=== PATIENT | female | born 1945 | race Caucasian/White ===

== ENCOUNTER → 2018-02-02 | Outpatient (CLI) | payer OTHER, SELFPAY ==
[~2018-02-02] MED LIST: ANTACID325 MG PO; ASPIRIN81 M2 PO; ATENOLOL 100MG100 M2 PO; BENTYL 10 MG CA10 MG PO; CATAPRES-TTS 20.2 M1; CIPRO250 M1 PO; CIPRO500 MG PO; CLONIDINE HCL0.2 M2 PO; CLONIDINE HCL0.3 M3; COLACE100 MG PO; CYCLOBENZAPRINE10 MG PO; CYMBALTA60 MG PO; DILTIAZEM 24HR240 MG; FLAGYL500 MG PO; GABAPENTIN 100100 MG PO; GLIPIZIDE ER2.5 MG PO; GLUMETZA1000; HYDRALAZINE 10M10 MG PO; HYDROCODON-ACE1 EAC7; IRON325 PO; KEFLEX500 MG PO; MECLIZINE 25 MG25 M1; MECLIZINE HCL25 M1 PO; MOTION RELIEF25 MG PO; NORCO 5-325 TA1 EACH PO; NORVASC5 MG PO; PAMELOR25 MG PO; PERCOCET 5-3251 EACH PO; PROTONIX40 M1 PO; PROTONIX40 M2; REGLAN 10 MG TA10 MG PO; SINEMET 10-1001 EAC1 PO; SINEMET CR 50/21 TAB PO; TRIPHROCAPS SOFT1 MG; TRIPHROCAPS SOFT1 MG PO; TUMS PO; VITAMIN D5000 UNIT PO; XANAX 0.25 MG0.25 MG PO; ZANTAC 150MG T150 M1; ZANTAC 150MG T150 MG PO; ZANTAC PO; ZOCOR40 MG PO; ZOFRAN ODT4 MG PO; ZOFRAN4 MG
[2018-02-02 12:09] LABS: ABSOLUTE LYMPHOCYTES 1.3 thou/uL (0.8-5.3); ABSOLUTE NEUTROPHILS 6.7 thou/uL (1.6-8.1); NUCLEATED RBCS 0 /100WBC; RDW-CV 13.4 % (10.5-14.5)
[2018-02-02 12:10] LABS: ABSOLUTE BASOPHILS 0.1 thou/uL (0.0-0.2); ABSOLUTE EOSINOPHILS 0.3 thou/uL (0.0-0.7); ABSOLUTE MONOCYTES 0.6 thou/uL (0.0-1.2); EOSINOPHILS 3.6 %; HEMATOCRIT 29.6 % (37.0-47.0); HEMOGLOBIN 9.8 gm/dL (12.0-15.0); LYMPHOCYTES 14.5 %; MCHC 33.1 g/dL (28.0-37.0); MCV 93.7 fL (80.0-100.0); MONOCYTES 7.1 %; PLATELET COUNT* 220 thou/uL (150-400); POLYS 73.8 %; RBC 3.15 mil/uL (4.20-5.00); WBC 9.1 thou/uL (4.0-11.0)
[2018-02-02 12:23] LABS: ALBUMIN 3.1 g/dL (3.4-5.0); CALCIUM 8.5 mg/dL (8.5-10.1); CREATININE 2.5 mg/dL (0.6-1.3); POTASSIUM 4.1 mmol/L (3.5-5.1); TOTAL BILIRUBIN 0.4 mg/dL (<0.1-1.0)
[2018-02-02 13:18] LABS: ESR (SEDRATE) 62 mm/hr (0-30)
== END ==
LOC: M.LAB 11:50
PROVIDERS: Psychiatry & Neurology Neuromuscular Medicine
DX: G20 Parkinson's disease (principal); R53.83 Other fatigue; R68.89 Other general symptoms and signs

== ENCOUNTER → 2018-05-13 | Outpatient (CLI) | payer OTHER | LOC: M.LAB 12:28 | DX: G20 Parkinson's disease (principal); R53.83 Other fatigue ==

== ENCOUNTER 2018-07-17 10:56 | Inpatient (IN) | payer OTHER ==
[~2018-07-17] VITALS: Ht 157.5 cm; Wt 75.7 kg
[~2018-07-17 10:56] MED LIST changes: +SINEMET CR 25-1 EACH PO; -SINEMET CR 50/21 TAB PO
[2018-07-17 11:05] VITALS: BP 185/63
[2018-07-17] MEDS ORDERED: TRIAMCINOLONE A80 G2 TOP (11:15)
[2018-07-17] MEDS ORDERED: LIPITOR 20 MG T20 M1 PO (11:15)
[2018-07-17] MEDS ORDERED: TOPROL XL25 MG PO (11:15)
[2018-07-17] MEDS ORDERED: CUTIVATE120 ML TOP (11:16)
[2018-07-17] MEDS ORDERED: AMLACTIN1 EACH TOP (11:17)
[2018-07-17 11:57] LABS: BE -0.7 mmol/L (-2 to +3); PCO2 41.2 mmHg (35.0-45.0); PO2 61.2 mmHg (75.0-100.0); pH 7.388 (7.340-7.450)
[2018-07-17 12:24] LABS: HEMATOCRIT 28.4 % (37.0-47.0); HEMOGLOBIN 9.3 gm/dL (12.0-15.0); MCH 31.3 pg (26.0-34.0); MCHC 32.9 g/dL (28.0-37.0); MPV 9.5 fl. (7.2-11.1); NUCLEATED RBCS 0 /100WBC; PLATELET COUNT* 231 thou/uL (150-400); RBC 2.99 mil/uL (4.20-5.00); RDW-CV 12.8 % (10.5-14.5); WBC 8.8 thou/uL (4.0-11.0)
[2018-07-17 12:28] LABS: URINE BILIRUBIN NEGATIVE (Negative); URINE BLOOD NEGATIVE (Negative); URINE CLARITY CLEAR; URINE COLOR STRAW; URINE GLUCOSE-RANDOM TRACE (Negative); URINE KETONES NEGATIVE (Negative); URINE LEUKOCYTES-REFLEX NEGATIVE (Negative); URINE NITRITE-REFLEX NEGATIVE (Negative); URINE PROTEIN 2+ (Negative); URINE SPECIFIC GRAVITY 1.015 (1.005-1.030); URINE UROBILINOGEN 0.2 E.U./dl (0.2-1.0)
[2018-07-17 12:40] LABS: BACTERIA-REFLEX 1-9 Few /HPF (None Seen); SQUAMOUS 4-10 Moderate /LPF (0-3); URINE RBC 0-2 Rare /HPF (0-2); URINE WBC-REFLEX 0-5 Rare /HPF (0-5)
[2018-07-17 12:41] LABS: CASTS None Seen /LPF (None Seen); CRYSTALS None Seen /LPF (None Seen); MUCUS 0-3 Light strn/LPF (None Seen)
[2018-07-17 12:42] LABS: ALBUMIN 3.1 g/dL (3.4-5.0); CALCIUM 8.5 mg/dL (8.5-10.1); CREATININE 2.5 mg/dL (0.6-1.3); MAGNESIUM 2.6 mg/dL (1.8-2.4); POTASSIUM 4.1 mmol/L (3.5-5.1); TOTAL BILIRUBIN 0.4 mg/dL (<0.1-1.0); TOTAL PROTEIN 7.3 g/dL (6.4-8.2)
[2018-07-17 13:29] LABS: ABSOLUTE EOSINOPHILS 0.2 thou/uL (0.0-0.7); ABSOLUTE LYMPHOCYTES 0.4 thou/uL (0.8-5.3); ABSOLUTE MONOCYTES 0.6 thou/uL (0.0-1.2); ABSOLUTE NEUTROPHILS 7.6 thou/uL (1.6-8.1); PLATELET ESTIMATE ADEQUATE
[2018-07-17 13:30] LABS: HYPOCHROMASIA 2+
[2018-07-17 14:45] VITALS: BP 156/49
[2018-07-17 20:00] VITALS: BP 120/60
[2018-07-17 23:43] VITALS: BP 164/51
[2018-07-18 03:56] VITALS: BP 171/62
[2018-07-18 05:03] LABS: HEMATOCRIT 27.1 % (37.0-47.0); MCH 31.5 pg (26.0-34.0); MCHC 33.3 g/dL (28.0-37.0); MCV 94.6 fL (80.0-100.0); MPV 9.5 fl. (7.2-11.1); RBC 2.87 mil/uL (4.20-5.00); RDW-CV 13.2 % (10.5-14.5); WBC 8.4 thou/uL (4.0-11.0)
[2018-07-18 05:48] LABS: ALBUMIN 2.9 g/dL (3.4-5.0); CALCIUM 8.3 mg/dL (8.5-10.1); CREATININE 2.5 mg/dL (0.6-1.3); MAGNESIUM 2.5 mg/dL (1.8-2.4); POTASSIUM 4.2 mmol/L (3.5-5.1); TOTAL BILIRUBIN 0.4 mg/dL (<0.1-1.0)
[2018-07-18 08:30] VITALS: BP 165/61
[2018-07-18 12:00] VITALS: BP 200/83
--- NOTE | 2018-07-18 13:47 | EKG ---
[place] [address] ELECTROCARDIOGRAM REPORT Name: KATECARRIESeema WEINSTEIN Room: [address] ADM IN M.R.#: [id number] Admission: 07/17/18 Attend Phys: Colton Coronado, Discharge: Date of : 47 Report #: [id number] THIS REPORT FOR: //name// [facility] ED Test Date: 2018-07-17 Test Time: 11:29:05 Pat Name: CARRIE LOVE Department: Room: [facility] Gender: F Rectifying Attendant: [address] : 1945 Requested By: Janet Sifuentes Order Number: [id number] MD: Franklin Gao Measurements Intervals [place] Rate: 85 P: 60 NC: 203 QRS: 77 QRSD: 106 T: 53 QT: 399 QTc: 475 Interpretive Statements Sinus rhythm Probable left atrial enlargement Compared to ECG 05/23/2016 09:03:38 No significant changes Electronically Signed On 07-18-2018 13:47:38 CDT by Franklin Gao [email or web address] <ELECTRONICALLY SIGNED> By: Franklin Gao MD, [facility] 07/18/18 1347 1129 [id number] Franklin Gao MD, [facility] /EPI
[2018-07-18 16:00] VITALS: BP 183/76
[2018-07-18 18:45] VITALS: BP 170/64
[2018-07-18 20:00] VITALS: BP 151/51; BP 160/52
[2018-07-19 04:00] VITALS: BP 160/61
[2018-07-19 04:52] LABS: ALBUMIN 2.8 g/dL (3.4-5.0); CALCIUM 8.3 mg/dL (8.5-10.1); CREATININE 2.4 mg/dL (0.6-1.3); PHOSPHORUS* 5.4 mg/dL (2.5-4.9); POTASSIUM 4.7 mmol/L (3.5-5.1)
[2018-07-19 11:57] VITALS: BP 162/64
[2018-07-20 05:29] LABS: ABSOLUTE BASOPHILS 0.1 thou/uL (0.0-0.2); ABSOLUTE EOSINOPHILS 0.2 thou/uL (0.0-0.7); ABSOLUTE LYMPHOCYTES 1.1 thou/uL (0.8-5.3); ABSOLUTE MONOCYTES 0.6 thou/uL (0.0-1.2); ABSOLUTE NEUTROPHILS 5.1 thou/uL (1.6-8.1); BASOPHILS 1.2 %; HEMATOCRIT 25.7 % (37.0-47.0); HEMOGLOBIN 8.3 gm/dL (12.0-15.0); LYMPHOCYTES 15.8 %; MCH 30.6 pg (26.0-34.0); MCHC 32.1 g/dL (28.0-37.0); MCV 95.2 fL (80.0-100.0); MONOCYTES 8.1 %; MPV 9.6 fl. (7.2-11.1); NUCLEATED RBCS 0 /100WBC; PLATELET COUNT* 196 thou/uL (150-400); POLYS 71.9 %; RDW-CV 13.3 % (10.5-14.5); WBC 7.1 thou/uL (4.0-11.0)
[2018-07-20 05:39] LABS: CALCIUM 8.9 mg/dL (8.5-10.1); CREATININE 2.6 mg/dL (0.6-1.3); POTASSIUM 4.2 mmol/L (3.5-5.1)
[2018-07-20 07:30] VITALS: BP 164/54
--- NOTE | 2018-07-20 14:46 | 2DMMODE ---
[place] [address] 2 D/M-MODE ECHOCARDIOGRAM Name: ACRRIE LOVE Room: [address] IN [facility]#: [id number] Admission: 07/17/18 Attend Phys: Colton Hu Discharge: Date of : 47 Date of Service: 07/20/18 1446 Report #: [id number] THIS REPORT FOR: //name// APPROVED REPORT Study performed: 07/20/2018 13:38:45 EXAM: Comprehensive 2D, Doppler, and color-flow Echocardiogram Patient Location: In-Patient Room #: [facility] Status: routine BSA: 1.77 HR: 63 bpm BP: 180/68 mmHg Rhythm: NSR Other Information Study Quality: Good Indications Dyspnea 2D Dimensions IVSd: 11.70 (7-11mm) LVOT Diam: 20.24 (18-24mm) LVDd: 45.93 mm PWd: 11.70 (7-11mm) Ascending Ao: 31.32 (22-36mm) LVDs: 36.38 (25-40mm) Aortic Root: 26.58 mm Volumes Left Atrial Volume (Systole) LA ESV Index: 59.40 mL/m2 Aortic Valve AoV Peak Tate.: 1.51 m/s AO Peak Gr.: 9.11 mmHg LVOT Max P.97 mmHg AO Mean Gr.: 5.07 mmHg LVOT Mean P.70 mmHg LVOT Max V: 1.11 m/s AO V2 VTI: 32.78 cm LVOT Mean V: 0.77 m/s WILLA (VTI): 2.58 cm2 LVOT V1 VTI: 26.31 cm Mitral Valve E/A Ratio: 1.33 MV Decel. Time: 136.75 ms MV E Max Tate.: 1.02 m/[place] [address] 2 D/M-MODE ECHOCARDIOGRAM Name: KATECARRIE Room: [address] IN ..#: [id number] Admission: 07/17/18 Attend Phys: Colton Hu Discharge: Date of : 47 Date of Service: 07/20/18 1446 Report #: [id number] MV PHT: 39.66 ms MVA (PHT): 5.55 cm2 TDI E/Lateral E': 14.57 E/Medial E': 17.00 Medial E' Tate.: 0.06 m/s Lateral E' Tate.: 0.07 m/s Pulmonary Valve PV Peak Tate.: 0.95 m/s PV Peak Gr.: 3.64 mmHg Tricuspid Valve RAP Estimate: 5.00 mmHg TR Peak Gr.: 35.96 mmHg RVSP: 41.00 mmHg PA Pressure: 41.00 mmHg Left Ventricle The left ventricle is normal size. There is mild global hypokinesis. Mild concentric left ventricular hypertrophy. Left ventricular systolic function is mildly decreased. LVEF is 45-50%. Grade III - reversible restrictive diastolic dysfunction. Right Ventricle Right ventricle is mildly dilated. The right ventricular systolic function is normal. Atria Left atrium is severely dilated. Right atrium is moderately dilated. Aortic Valve Mild aortic valve sclerosis. No aortic regurgitation is present. There is no aortic valvular stenosis. Mitral Valve There is mitral annular calcification. Trace mitral regurgitation. No evidence of mitral valve stenosis. Tricuspid Valve The tricuspid valve is normal in structure. Mild tricuspid regurgitation. Moderate pulmonary hypertension. Pulmonic Valve The pulmonary valve is normal in structure. Trace [place] [address] 2 D/M-MODE ECHOCARDIOGRAM Name: CARRIE LOVE Room: [address]#: [id number] Admission: 07/17/18 Attend Phys: Colton Hu Discharge: Date of : 47 Date of Service: 07/20/18 1446 Report #: [id number] Great Vessels The aortic root is normal in size. IVC is normal in size and collapses >50% with inspiration. Pericardium There is no pericardial effusion. <Conclusion> The left ventricle is normal size. Mild concentric left ventricular hypertrophy. Left ventricular systolic function is mildly decreased. LVEF is 45-50%. Grade III - reversible restrictive diastolic dysfunction. There is mild global hypokinesis. Right ventricle is mildly dilated. Left atrium is severely dilated. Right atrium is moderately dilated. Mild aortic valve sclerosis. There is mitral annular calcification. Trace mitral regurgitation. Mild tricuspid regurgitation. Moderate pulmonary hypertension. Trace pulmonic regurgitation. <ELECTRONICALLY SIGNED> By: Raz White MD, FACC 07/20/18 1446 1446 1446 Raz White MD, FACC /INF
[2018-07-20 16:50] VITALS: BP 174/55
[2018-07-20 20:30] VITALS: BP 163/72
[2018-07-21 04:47] LABS: ABSOLUTE BASOPHILS 0.1 thou/uL (0.0-0.2); ABSOLUTE EOSINOPHILS 0.1 thou/uL (0.0-0.7); ABSOLUTE LYMPHOCYTES 0.9 thou/uL (0.8-5.3); ABSOLUTE MONOCYTES 0.7 thou/uL (0.0-1.2); ABSOLUTE NEUTROPHILS 6.6 thou/uL (1.6-8.1); HEMATOCRIT 24.9 % (37.0-47.0); HEMOGLOBIN 8.2 gm/dL (12.0-15.0); LYMPHOCYTES 10.7 %; MCH 30.9 pg (26.0-34.0); MCV 93.5 fL (80.0-100.0); MONOCYTES 8.1 %; MPV 9.7 fl. (7.2-11.1); NUCLEATED RBCS 0 /100WBC; PLATELET COUNT* 208 thou/uL (150-400); POLYS 79.2 %; RBC 2.66 mil/uL (4.20-5.00); RDW-CV 12.7 % (10.5-14.5); WBC 8.3 thou/uL (4.0-11.0)
[2018-07-21 05:32] LABS: CALCIUM 9.1 mg/dL (8.5-10.1); CREATININE 2.7 mg/dL (0.6-1.3); MAGNESIUM 2.1 mg/dL (1.8-2.4); PHOSPHORUS* 4.8 mg/dL (2.5-4.9); POTASSIUM 4.1 mmol/L (3.5-5.1)
[2018-07-21 08:00] VITALS: BP 154/77
[2018-07-21 16:00] VITALS: BP 166/65
[2018-07-21 20:46] VITALS: BP 170/73
[2018-07-22 08:00] VITALS: BP 170/67
--- NOTE | 2018-07-22 10:11 | CON ---
[address] [address] CONSULTATION Name: CARRIE LOVE Room: [address] IN .R.#: [id number] Admission: 07/17/18 Attend Phys: Colton Coronado, Discharge: Date of : 47 Report #: [id number] THIS REPORT FOR: //name// CC: Magdalena Coronado CONSULT REQUESTED BY: Dr. Coronado. REASON FOR CONSULTATION: Chronic kidney disease. HISTORY OF PRESENT ILLNESS: A 72-year-old female with a history of chronic kidney disease followed by Dr. Katz as an outpatient, admitted with generalized weakness, poorly controlled blood pressures and some hypoxia. She is being evaluated for the hypoxia. She did have a chest x-ray, which did not reveal any pulmonary edema or pneumonia. There was a nodular region of the right hilum, which is being followed by Internal Medicine. She denies any regular significant NSAID use. Denies any nausea, vomiting or diarrhea. She appears to be comfortable at present time. REVIEW OF SYSTEMS: Constitutional, psych, heme, eyes, ENT, respiratory, cardiac, GI, , endocrine, all negative except as documented above. PAST MEDICAL HISTORY: Chronic kidney disease stage 4, history of hypertension, diabetes, appendectomy, hysterectomy, Parkinson's. CURRENT MEDICATIONS: Reviewed. FAMILY HISTORY: Not pertinent in this 72-year-old female. SOCIAL HISTORY: No alcohol or drugs. PHYSICAL EXAMINATION: VITAL SIGNS: Blood pressure 165/61, pulse 85, respirations 16, temperature 36.5. GENERAL: No acute distress. EYES: Open. EARS: Externally normal. CARDIOVASCULAR: Regular rate. LUNGS: No crackles. ABDOMEN: Soft. MUSCULOSKELETAL: Nontender. PSYCHIATRIC: Awake, alert. LABORATORY DATA: White cell count 8.4, hemoglobin 9, platelets 224. Sodium 144, potassium 4.2, chloride 109, bicarbonate 25, BUN 44, creatinine 2.5, glucose 142, calcium 8.3, magnesium 2.5, albumin 2.9[place] [address] CONSULTATION Name: CARRIE LOVE CORINNA Room: [address] IN ..#: [id number] Admission: 07/17/18 Attend Phys: Colton Coronado, Discharge: Date of : 47 Report #: [id number] ASSESSMENT: 1. Chronic kidney disease, stage 4, followed by Dr. Katz as an outpatient. Creatinine 2.5, baseline may be around 2.5 as it was 2.5 in 01/2018. UA noted. She was on hemodialysis in the past, but recovered renal function. 2. Hypertension. 3. Parkinson's. 4. Diabetes. 5. Admitted with hypoxia. PLAN: 1. Discontinue normal saline. She is taking in orals. Blood pressure is elevated. She is on clonidine 0.3 mg 3 times a day at home. We will go ahead and resume that. 2. Check lab in a.m. 3. We will obtain office records to review baseline creatinine. Thank you for requesting my opinion in the care and management of this patient. <ELECTRONICALLY SIGNED> By: Anayeli Arrington MD 07/22/18 1011 1335 [id number] Arrington MD /nt
[2018-07-22 13:46] VITALS: BP 170/67
[2018-07-22] MEDS ORDERED: SENNA-S TABLET1 EACH PO (14:51)
[2018-07-22] MEDS ORDERED: DEMADEX20 MG PO (14:52)
[2018-07-22] MEDS ORDERED: CEFUROXIME500 MG PO (14:56)
[2018-07-22] MEDS ORDERED: AZITHROMYCIN500 MG PO (14:57)
[2018-07-22 15:28] VITALS: BP 176/64
== END 2018-07-22 15:34 | disposition home health service (06) | DRG 177 ==
LOC: M.ERS 10:56 → M.2W 12:58 → M.TBA-ER 12:58 → M.ORTHSURG 12:58 → M.2W 15:06 → M.ORTHSURG 07-19 16:08
PROVIDERS: Family Medicine; Internal Medicine Nephrology; Personal Emergency Response Attendant; ADMIT Family Medicine
DX: J15.6 Pneumonia due to other Gram-negative bacteria (principal); J96.01 Acute respiratory failure with hypoxia; N17.9 Acute kidney failure, unspecified; N18.4 Chronic kidney disease, stage 4 (severe); K59.09 Other constipation; E83.39 Other disorders of phosphorus metabolism; E86.0 Dehydration; I13.10 Hypertensive heart and chronic kidney disease without heart failure, with stage 1 through stage 4 chronic kidney disease, or unspecified chronic kidney disease; K58.9 Irritable bowel syndrome, unspecified; G20 Parkinson's disease; E11.22 Type 2 diabetes mellitus with diabetic chronic kidney disease; K21.9 Gastro-esophageal reflux disease without esophagitis; Z90.49 Acquired absence of other specified parts of digestive tract; Z90.710 Acquired absence of both cervix and uterus; Z99.2 Dependence on renal dialysis; Z79.82 Long term (current) use of aspirin; Z88.5 Allergy status to narcotic agent; Z82.49 Family history of ischemic heart disease and other diseases of the circulatory system

== ENCOUNTER 2018-12-20 17:43 | Inpatient (IN) | payer OTHER ==
[~2018-12-20] VITALS: Ht 160 cm; Wt 68.5 kg
--- NOTE | ~2018-12-20 | CON ---
[facility] [address] [place] [address] CONSULTATION Name: CARRIE LOVE Room: [address] IN ..#: [id number] Admission: 12/20/18 Attend Phys: Valerie Shrestha Discharge: Date of : 47 Report #: [id number] THIS REPORT FOR: //name// CC: Magdalena Deras DATE OF SERVICE: 12/21/2018 REQUESTING PHYSICIAN: Allan Cadet MD REASON FOR CONSULTATION: Acute kidney injury. HISTORY OF PRESENT ILLNESS: The patient is a very pleasant 73-year-old female very well known to me as I follow her for her chronic kidney disease stage 4. In the past, she required dialysis for some time then recovered kidney function, but now looks like she may be getting worse again. Baseline creatinine around 2.7-2.5. She had creatinine as low as 2.0 on 07/28/2018. She has been seeing vascular surgeon and she has AV fistula and had recent surgery on left lower arm AV fistula. Her creatinine on admission was 3.3, today is down to 2.9 with GFR of 16. She presented with chief complaint of the headache and her blood pressure was very elevated, it was 206/80. Now blood pressure is 175/72. PAST MEDICAL HISTORY: Significant for: 1. Chronic kidney disease, stage 4. 2. Hypertension. She is on 4 medications at home. 3. History of anemia, renal disease. 4. History of recent urinary tract infection. FAMILY HISTORY: Noncontributory. SOCIAL HISTORY: There is a very supportive family. No tobacco, no alcohol abuse. MEDICATIONS: Reviewed. Here in the hospital, she is on metoprolol 25 mg a day, hydralazine 20 mg 3 times a day, Norvasc 5 mg a day. She is also on Rocaltrol and clonidine 0.3 mg 3 times a day. PHYSICAL EXAMINATION: GENERAL: Awake, alert, and oriented. VITAL SIGNS: Blood pressure 175/80, heart rate is 60, afebrile. HEENT: Pupils are round. NECK: Supple. LUNGS: Decreased air movements at the bases. CARDIOVASCULAR: Regular rate. ABDOMEN: Soft. LOWER EXTREMITIES: [place] [address] CONSULTATION Name: CARRIE LOVE Valerie Room: [address]#: [id number] Admission: 12/20/18 Attend Phys: Valerie Shrestha Discharge: Date of : 47 Report #: [id number] LABORATORY DATA: Hemoglobin 9.8, serum sodium 136, potassium 3.6, chloride 99, carbon dioxide 27, BUN 57, creatinine 2.9, and calcium 8.3. Urinalysis unremarkable. ASSESSMENT: 1. Hypertensive urgency. 2. Acute kidney injury. 3. Chronic kidney disease, stage 4. 4. History of Parkinsonism. 5. History of anemia. PLAN: 1. Chest x-ray revealed that she has possible mild vascular prominence of the lungs. Now, she is able to keep food and drink down, so I would like to stop her IV fluids. 2. Follow her labs. 3. Make sure her blood pressure is controlled. 4. Vascular surgeon to see. 5. No immediate need for dialysis. By: 1103 [id number] Katz MD /PMT
[~2018-12-20 17:43] MED LIST changes: +AMLACTIN1 EACH TOP; +AZITHROMYCIN500 MG PO; +CEFUROXIME500 MG PO; -CLONIDINE HCL0.3 M3; +CLONIDINE HCL0.3 M3 PO; +CUTIVATE120 ML TOP; +DEMADEX20 MG PO; +LIPITOR 20 MG T20 M1 PO; +MIRALAX17 GM PO; +SENNA-S TABLET1 EACH PO; +TOPROL XL25 MG PO; +TRIAMCINOLONE A80 G2 TOP
[2018-12-20 17:57] VITALS: BP 185/64
[2018-12-20] MEDS ORDERED: NORTRIPTYLINE H50 M3 PO (18:10)
[2018-12-20] MEDS ORDERED: OXYCODONE HCL 55 MG PO (18:11)
[2018-12-20] MEDS ORDERED: CIPRO250 M1 PO (18:12)
[2018-12-20] MEDS ORDERED: CALCITRIOL0.25 MCG PO (18:12)
[2018-12-20 19:08] LABS: ABSOLUTE BASOPHILS 0.1 thou/uL (0.0-0.2); ABSOLUTE EOSINOPHILS 0.2 thou/uL (0.0-0.7); ABSOLUTE LYMPHOCYTES 1.3 thou/uL (0.8-5.3); ABSOLUTE MONOCYTES 0.6 thou/uL (0.0-1.2); ABSOLUTE NEUTROPHILS 6.3 thou/uL (1.6-8.1); BASOPHILS 1.2 %; EOSINOPHILS 2.1 %; HEMATOCRIT 29.1 % (37.0-47.0); HEMOGLOBIN 9.8 gm/dL (12.0-15.0); LYMPHOCYTES 15.4 %; MCH 31.7 pg (26.0-34.0); MCHC 33.7 g/dL (28.0-37.0); MCV 94.1 fL (80.0-100.0); MONOCYTES 7.3 %; MPV 9.2 fl. (7.2-11.1); NUCLEATED RBCS 0 /100WBC; PLATELET COUNT* 231 thou/uL (150-400); RBC 3.09 mil/uL (4.20-5.00); RDW-CV 13.7 % (10.5-14.5); WBC 8.5 thou/uL (4.0-11.0)
[2018-12-20 19:20] LABS: ANION GAP 10 mmol/L (7-16); BUN 62 mg/dL (7-18); CALCIUM 8.6 mg/dL (8.5-10.1); CHLORIDE 95 mmol/L (98-107); CO2 29 mmol/L (21-32); CREATININE 3.3 mg/dL (0.6-1.3); GLUCOSE 156 mg/dL (70-99); POTASSIUM 3.8 mmol/L (3.5-5.1); SODIUM 134 mmol/L (136-145)
[2018-12-20 19:29] LABS: ALBUMIN 3.4 g/dL (3.4-5.0); ALKALINE PHOSPHATASE 144 U/L (46-116); LIPASE 220 U/L (73-393); SGOT 10 U/L (15-37); SGPT 7 U/L (30-65); TOTAL BILIRUBIN 0.4 mg/dL (<0.1-1.0); TOTAL PROTEIN 7.6 g/dL (6.4-8.2); TROPONIN-I LEVEL <0.06 ng/mL (<0.06)
[2018-12-20 19:38] LABS: URINE BILIRUBIN NEGATIVE (Negative); URINE BLOOD NEGATIVE (Negative); URINE CLARITY CLEAR; URINE COLOR YELLOW; URINE GLUCOSE-RANDOM NEGATIVE (Negative); URINE KETONES NEGATIVE (Negative); URINE LEUKOCYTES-REFLEX NEGATIVE (Negative); URINE NITRITE-REFLEX NEGATIVE (Negative); URINE PROTEIN 1+ (Negative); URINE SPECIFIC GRAVITY <= 1.005 (1.005-1.030); URINE UROBILINOGEN 0.2 E.U./dl (0.2-1.0)
[2018-12-20 21:55] VITALS: BP 187/74
[2018-12-20 22:00] VITALS: BP 150/81
[2018-12-21] VITALS (7 sets, daily range): BP systolic 154–206; BP diastolic 55–85
[2018-12-21 10:45] LABS: CALCIUM 8.3 mg/dL (8.5-10.1); CREATININE 2.9 mg/dL (0.6-1.3); MAGNESIUM 2.4 mg/dL (1.8-2.4); POTASSIUM 3.6 mmol/L (3.5-5.1)
--- NOTE | 2018-12-21 15:01 | EKG ---
[place] [address] ELECTROCARDIOGRAM REPORT Name: CARRIE LOVE Room: [address] ADM IN .R.#: [id number] Admission: 12/20/18 Attend Phys: Valerie Shrestha Discharge: Date of : 47 Report #: [id number] THIS REPORT FOR: //name// [facility] ED Test Date: 2018-12-20 Test Time: 18:23:03 Pat Name: CARRIE LOVE Department: Room: [facility] Gender: F Pmp Project Manager: : 1945 Requested By: Dayana Alonzo Order Number: [id number] MD: Raz White Measurements Intervals [place] Rate: 67 P: 37 MA: 204 QRS: 22 QRSD: 109 T: 75 QT: 419 QTc: 443 Interpretive Statements Sinus rhythm Abnormal R-wave progression, early transition Compared to ECG 07/26/2018 14:42:13 Atrial abnormality no longer present Prolonged QT interval no longer present Electronically Signed On 12-21-2018 15:01:08 CDT by Raz White [email or web address] <ELECTRONICALLY SIGNED> By: Raz White MD, [facility] 12/21/18 1501 1823 1823 Raz White MD, [facility] /EPI
[2018-12-22 04:00] VITALS: BP 148/60
[2018-12-22 05:17] LABS: MCH 31.5 pg (26.0-34.0); MCHC 33.3 g/dL (28.0-37.0); MCV 94.6 fL (80.0-100.0); MPV 9.2 fl. (7.2-11.1); RBC 3.17 mil/uL (4.20-5.00); RDW-CV 13.7 % (10.5-14.5); WBC 7.9 thou/uL (4.0-11.0)
[2018-12-22 05:38] LABS: ALBUMIN 3.2 g/dL (3.4-5.0); CALCIUM 8.6 mg/dL (8.5-10.1); CREATININE 2.7 mg/dL (0.6-1.3); POTASSIUM 3.9 mmol/L (3.5-5.1); TOTAL BILIRUBIN 0.3 mg/dL (<0.1-1.0); TOTAL PROTEIN 6.9 g/dL (6.4-8.2)
[2018-12-22] MEDS ORDERED: NORVASC5 MG PO (09:54)
[2018-12-22 11:30] VITALS: BP 151/85
[2018-12-22] MEDS ORDERED: COREG6.25 MG PO (14:24)
[2018-12-22] MEDS ORDERED: CATAPRES-TTS 11 EACH TRANSDERM (14:28)
[2018-12-22 14:50] VITALS: BP 151/85
== END 2018-12-22 16:00 | disposition home or self-care (01) | DRG 91 ==
LOC: M.ERS 17:43 → M.2W 21:14 → M.TBA-ER 21:14 → M.2W 21:38
PROVIDERS: Internal Medicine; Internal Medicine Nephrology; Physician Assistant; ADMIT Internal Medicine
DX: G92 Toxic encephalopathy (principal); N17.0 Acute kidney failure with tubular necrosis; N18.4 Chronic kidney disease, stage 4 (severe); K21.9 Gastro-esophageal reflux disease without esophagitis; G20 Parkinson's disease; E11.22 Type 2 diabetes mellitus with diabetic chronic kidney disease; I16.0 Hypertensive urgency; E86.9 Volume depletion, unspecified; I12.9 Hypertensive chronic kidney disease with stage 1 through stage 4 chronic kidney disease, or unspecified chronic kidney disease; E78.5 Hyperlipidemia, unspecified; T50.905A Adverse effect of unspecified drugs, medicaments and biological substances, initial encounter; Y92.89 Other specified places as the place of occurrence of the external cause; Z90.49 Acquired absence of other specified parts of digestive tract; Z90.710 Acquired absence of both cervix and uterus; Z86.010 Personal history of colon polyps; Z88.6 Allergy status to analgesic agent

== ENCOUNTER 2019-03-01 21:42 | Inpatient (IN) | payer OTHER ==
[~2019-03-01] VITALS: Ht 162.6 cm; Wt 67.5 kg
[~2019-03-01 21:42] MED LIST changes: +CALCITRIOL0.25 MCG PO; +CATAPRES-TTS 11 EACH TRANSDERM; +COREG6.25 MG PO; +NORTRIPTYLINE H50 M3 PO; +OXYCODONE HCL 55 MG PO
[2019-03-01 21:45] VITALS: BP 238/86
[2019-03-01] MEDS ORDERED: CARBIDOPA-LEVO1 EA10 PO (22:12)
[2019-03-01] MEDS ORDERED: CATAPRES0.1 MG PO (22:16)
[2019-03-01 22:22] LABS: ABSOLUTE BASOPHILS 0.1 thou/uL (0.0-0.2); ABSOLUTE EOSINOPHILS 0.1 thou/uL (0.0-0.7); ABSOLUTE LYMPHOCYTES 1.2 thou/uL (0.8-5.3); ABSOLUTE MONOCYTES 0.4 thou/uL (0.0-1.2); ABSOLUTE NEUTROPHILS 5.8 thou/uL (1.6-8.1); BASOPHILS 1.3 %; EOSINOPHILS 1.9 %; HEMATOCRIT 29.3 % (37.0-47.0); HEMOGLOBIN 9.9 gm/dL (12.0-15.0); LYMPHOCYTES 15.4 %; MCH 32.3 pg (26.0-34.0); MCHC 33.9 g/dL (28.0-37.0); MCV 95.5 fL (80.0-100.0); MONOCYTES 5.7 %; MPV 9.1 fl. (7.2-11.1); NUCLEATED RBCS 0 /100WBC; PLATELET COUNT* 202 thou/uL (150-400); POLYS 75.7 %; RBC 3.07 mil/uL (4.20-5.00); RDW-CV 13.4 % (10.5-14.5); WBC 7.7 thou/uL (4.0-11.0)
[2019-03-01 22:31] LABS: PROTIME 10.4 Seconds (9.20-11.50)
[2019-03-01 22:34] LABS: CALCIUM 8.7 mg/dL (8.5-10.1); CREATININE 3.4 mg/dL (0.6-1.3); POTASSIUM 4.3 mmol/L (3.5-5.1)
[2019-03-01 22:49] LABS: ALBUMIN 3.5 g/dL (3.4-5.0); TOTAL BILIRUBIN 0.3 mg/dL (<0.1-1.0); TOTAL PROTEIN 7.6 g/dL (6.4-8.2)
[2019-03-02] VITALS (7 sets, daily range): BP systolic 154–194; BP diastolic 53–72
[2019-03-02] MEDS ORDERED: CARBIDOPA-LEVO1 EAC7 PO (04:29)
[2019-03-02] MEDS ORDERED: CALCIUM ACETAT667 MG PO (04:33)
[2019-03-02 05:51] LABS: CALCIUM 9.1 mg/dL (8.5-10.1); CREATININE 3.3 mg/dL (0.6-1.3); POTASSIUM 4.1 mmol/L (3.5-5.1)
--- NOTE | 2019-03-02 07:33 | NUR ---
RECEIVED PT FROM ER AT APPROX 0045 ACCOMPANIED BY DENZEL PINO. PT IS AWAKE AND ORIENTED X4. VSS ON 2L OF O2/NC. ELECTRIC POWER SUPERINTENDENT IN PLACE TRACING SR. ADMISSION ASSESSMENT DONE. PT ADVISED ON THE USE OF CALL LIGHT AND ON THE ROOM SET UP. PT IS ADVISED TO HAVE NOTHING BY MOUTH FOR CARDIOLOGY. HOURLY ROUNDING DONE FOR PT SAFETY. CALL LIGHT WITHIN REACH.FALL PRECAUTIONS IN PLACE.
--- NOTE | 2019-03-02 08:59 | EKG ---
[place] [address] ELECTROCARDIOGRAM REPORT Name: CARRIE LOVE Room: [address] ADM IN [facility]#: [id number] Admission: 03/01/19 Attend Phys: Valerie Shrestha Discharge: Date of : 47 Report #: [id number] THIS REPORT FOR: //name// [facility] ED Test Date: 2019-03-01 Test Time: 21:48:45 Pat Name: CARRIE LOVE Department: Room: [facility] Gender: F Psychology Fellow: [place] : 1945 Requested By: Janet Sifuentes Order Number: [id number] MD: Raz White Measurements Intervals [place] Rate: 90 P: 55 SC: 191 QRS: 25 QRSD: 105 T: 63 QT: 383 QTc: 469 Interpretive Statements Sinus rhythm Probable left atrial enlargement Compared to ECG 12/20/2018 18:23:03 No significant changes Electronically Signed On 03-02-2019 8:59:02 CEMENT GRINDING MILL OPERATOR by Raz White [email or web address] <ELECTRONICALLY SIGNED> By: Raz White MD, [facility] 03/02/19 0859 47 47 Raz White MD, [facility] /EPI
--- NOTE | 2019-03-02 11:10 | NUR ---
ASSUMED CARE OF PATIENT THIS AM AT 0730. PATIENT IS ALERT AND ORIENTED X 4. SHE DENIES PAIN THIS AM. TELE SHOWS SR WITH PACS. HER BP WAS ELEVATED THIS AM. SEE FLOW SHEET. PATIENT GIVEN AM MEDICATIONS. PATIENT KEPT NPO FOR CARDIOLOGY CONSULT. DR NICOLE IN TO ROUND AND CARDIOLOGY CONSULT CANCELLED. DIET ORDERED. IS IN AT THE BEDSIDE. WILL CONTINUE TO MONITOR VS LAB AND TEST RESULTS. PATIENT ASSISTED UP TO THE BR WITH STANDBY ASSIST.
--- NOTE | 2019-03-02 13:13 | NUR ---
Pt is A&O. Resides at home with her . Normally independent, completes ADLs, shares IADLs with . Pt uses a cane for mobility. Hx of [facility]. No hx of SNF. Spoke with , possible need for outpt dialysis at some point, per renal, Pt does not need dialysis at this time. Pt's goal is to return home at [place], following for dispo.
[2019-03-02 19:41] LABS: URINE BILIRUBIN NEGATIVE (Negative); URINE BLOOD NEGATIVE (Negative); URINE CLARITY CLEAR; URINE COLOR YELLOW; URINE GLUCOSE-RANDOM NEGATIVE (Negative); URINE KETONES NEGATIVE (Negative); URINE LEUKOCYTES NEGATIVE (Negative); URINE NITRITE NEGATIVE (Negative); URINE PROTEIN 2+ (Negative); URINE UROBILINOGEN 0.2 E.U./dl (0.2-1.0)
[2019-03-02 19:51] LABS: BACTERIA 1-9 Few /HPF (None Seen); CRYSTALS None Seen /LPF (None Seen); HYALINE CASTS 0-3 Few /LPF (None Seen); MUCUS None Seen strn/LPF (None Seen); SQUAMOUS 4-10 Moderate /LPF (0-3); URINE RBC >20 Many /HPF (0-2)
[2019-03-02 19:52] LABS: URINE WBC None Seen /HPF (0-5)
[2019-03-03] VITALS (7 sets, daily range): BP systolic 120–187; BP diastolic 36–73
[2019-03-03 04:37] LABS: HEMOGLOBIN 9.2 gm/dL (12.0-15.0); MCH 31.3 pg (26.0-34.0); MCHC 32.7 g/dL (28.0-37.0); MCV 95.6 fL (80.0-100.0); MPV 9.4 fl. (7.2-11.1); RBC 2.93 mil/uL (4.20-5.00); RDW-CV 13.8 % (10.5-14.5); WBC 7.5 thou/uL (4.0-11.0)
[2019-03-03 04:54] LABS: CALCIUM 8.7 mg/dL (8.5-10.1); CREATININE 3.3 mg/dL (0.6-1.3); MAGNESIUM 2.4 mg/dL (1.8-2.4); TOTAL BILIRUBIN 0.3 mg/dL (<0.1-1.0); TOTAL PROTEIN 6.9 g/dL (6.4-8.2)
--- NOTE | 2019-03-03 07:38 | NUR ---
ASSUMED PT CARE AT APPROX 1930. PT IS AWAKE AND ORIENTED X4. VSS ON ROOM AIR. IT APPLICATION SUPPORT ANALYST IN PLACE TRACING SR. ASSESSMENT DONE AND CHARTED. PT DENIES PAIN/DISCOMFORT. PT IS ABLE TO SLEEP MOST OF THE NIGHT. CALL LIGHT WITHIN REACH. HOURLY ROUNDING DONE FOR PT SAFETY. FALL PRECAUTIONS IN PLACE.
--- NOTE | 2019-03-03 09:27 | CON ---
[address] [address] CONSULTATION Name: CARRIE LOVE Room: [address] IN .R.#: [id number] Admission: 03/01/19 Attend Phys: Valerie Shrestha Discharge: Date of : 47 Report #: [id number] THIS REPORT FOR: //name// CC: Magdalena Deras DATE OF SERVICE: 03/02/2019 NEPHROLOGY CONSULTATION CONSULTING PHYSICIAN: Janet Sifuentes MD REASON FOR NEPHROLOGY CONSULTATION: Acute kidney injury on chronic kidney disease stage 4. REASON FOR ADMISSION: Chest tightness. HISTORY OF PRESENT ILLNESS: A 73-year-old female with past medical history of chronic kidney disease stage 4, hypertensive and diabetic nephropathy, has been on dialysis for 2 years, has not done dialysis since 2012, has a left arm AV fistula, also has Parkinson disease and hypercholesterolemia, was brought to the patient's because her blood pressure went up to 200 systolic and the patient was experiencing some chest tightness. She still has some ongoing tightness under her ribs in the epigastric area and tightness is in a band-like territory. Her BUN 74, her creatinine was 3.4 on admission and 3.3 today. Her blood pressure was elevated to 238 systolic and is down to 181 systolic today. Her baseline creatinine is more around 2.5-2.7 and she was recently admitted to [facility] with accelerated hypertension and acute kidney injury when her creatinine was 3.3 and then 2.7 at the time of discharge. She is on Demadex at home, which is currently on hold. She is on multiple antihypertensive medications and checks the blood pressure at home but her blood pressure goes up and down and a couple of days ago was running too low in the morning. Says she did not take her blood pressure medications, at least a few of them. Her is at her bedside. She has no difficulty breathing. She has no difficulty urinating. She follows with Dr. Katz, was one of my partners. ALLERGIES: MORPHINE AND CLONIDINE. REVIEW OF SYSTEMS: As mentioned in history of present illness, otherwise 10-point review of systems done, negative. PAST MEDICAL AND SURGICAL HISTORY: Includes appendectomy, total hysterectomy, laparoscopic cholecystectomy, AV fistula creation on the left side, diabetes mellitus type 2, hypertension, chronic kidney disease stage 4, varicose veins dialysis of 2012 and 2014, resting tremors, vitamin B12 deficiency, colon polyps, IBS, acid reflux, [place] [address] CONSULTATION Name: CARRIE LOVE Room: [address]#: [id number] Admission: 03/01/19 Attend Phys: Valerie Shrestha Discharge: Date of : 47 Report #: [id number] HOME MEDICATIONS: Include gabapentin, amlodipine 5 mg a day, calcitriol, hydralazine 20 mg 3 times a day, carbidopa/levodopa, atorvastatin, torsemide 20 mg daily, polyethylene glycol, nortriptyline, carvedilol, carbidopa/levodopa, clonidine, sennosides, docusate. FAMILY HISTORY: Noncontributory. SOCIAL HISTORY: Does not smoke or drink alcohol or use illicit drugs. He lives at home with her . PHYSICAL EXAMINATION: VITAL SIGNS: Blood pressure is 181/71, temperature 36.4, pulse rate is 71, respiratory rate is 18, and pulse ox was on 2 liters of oxygen by nasal cannula 98%. GENERAL: She is awake, alert, oriented x 3. HEAD AND EYES: Atraumatic, normocephalic. EARS, NOSE, AND THROAT: Mucous membranes are moist. NECK: No JVD. CHEST: Bilaterally clear to auscultation anteriorly. No crackles or wheezing. CARDIOVASCULAR: S1, S2 normal. No murmurs. ABDOMEN: Soft, nondistended, nontender. Bowel sounds are present. EXTREMITIES: No lower extremity edema. NEUROLOGICAL FUNCTION: She does have resting tremors in left upper extremity and otherwise she is moving all extremities. She does have some generalized weakness. PSYCHIATRIC: Mood veliz, she does seem a little depressed. LABORATORY DATA: Hemoglobin is 9.9. Sodium is 141, potassium is 4.1, BUN 74, creatinine is 3.3. Other labs were reviewed. IMAGING: Chest x-ray was reviewed. ASSESSMENT: 1. Acute kidney injury on chronic kidney disease stage 4, baseline creatinine is 2.5-2.7, creatinine 3.4 on admission. Acute kidney injuries in the setting of uncontrolled hypertension. She follows with Dr. Katz as outpatient. Urine studies are pending. There is no need for renal imaging right now. 2. Anemia of chronic kidney disease. The patient does get erythropoietin as outpatient. 3. Hypertension, fluctuating very labile, likely has autonomic dysfunction as a result of Parkinson disease. 4. History of Parkinson disease. 5. History of diabetes type 2. 6. Secondary hyperparathyroidism. 7. Chest pressure in the setting of uncontrolled blood pressure and her [facility] [address] [place] [address] CONSULTATION Name: CARRIE LOVE Room: [address] IN M.R.#: [id number] Admission: 03/01/19 Attend Phys: Valerie Shrestha Discharge: Date of : 47 Report #: [id number] troponin is normal. PLAN: 1. Agree with starting her blood pressure medications and watch for hypotension because of blood pressure fluctuating, likely that is with autonomic dysfunction because of Parkinson disease. 2. Continue to keep her Demadex on hold. 3. Right now, there is no acute indication for dialysis. 4. We will continue to monitor kidney function. 5. We will also order an ultrasound for left upper arm AV fistula evaluation because although it has a good thrill, there is a vessel towards the end of the bruit and we want to make sure there is no stenosis. We cannot unfortunately do a fistulogram because that is going to push her towards dialysis. 6. We cannot give her Epogen right now until her blood pressures are better controlled. 7. Continue her phosphorus binders. 8. Make sure her urine output is being documented and check a UA. Thank you for this consultation. We will continue to follow along with you. We discussed with the patient's nurse, patient and the patient's . <ELECTRONICALLY SIGNED> By: Jess Joy MD 03/03/19 0927 1147 [id number] Joy MD /nt
--- NOTE | 2019-03-03 10:34 | NUR ---
Spoke with , possible dc tomorrow. CM discussed SNF with Pt, Pt and want therapies to eval prior to making a decision. Pt hopeful to be able to dc home with HH.
[2019-03-04] VITALS (8 sets, daily range): BP systolic 134–180; BP diastolic 47–69
--- NOTE | 2019-03-04 04:53 | NUR ---
ASSUMED PT CARE AT APPROX 1930. PT IS AWAKE AND ORIENTED X4. VSS ON ROOM AIR. PT IS TRACING SR ON THE ELECTRIC WHEELCHAIR REPAIRER. PT DENIES PAIN/DISCOMFORT. ASSESSMENTS DONE AND CHARTED. FALL PRECAUTIONS IN PLACE. CALL LIGHT WITHIN REACH. HOURLY ROUNDING DONE FOR SAFETY.
--- NOTE | 2019-03-04 10:52 | NUR ---
Spoke with , Pt will be medically stable to dc to home tomorrow with . [facility] DC orders will need to be faxed tomorrow to [phone]
--- NOTE | 2019-03-04 19:24 | NUR ---
ASSUMED PT CARE AT 0700, VSS, RA, A&O X4, COLOR PRINT INSPECTOR TRACING SINUS RHYTHM, FULL ASSESSMENT CHARTED. PT TO DISCHARGE TOMORROW PER DR NICOLE, HOURLY ROUNDING COMPLETED.
[2019-03-05] VITALS: BP 141/46
[2019-03-05 04:00] VITALS: BP 156/56
--- NOTE | 2019-03-05 04:23 | NUR ---
Pt is AOx4, NSR on telemetry, respirations are even and unlabored. No acute distress at this time. Will continue to monitor.
[2019-03-05 08:00] VITALS: BP 147/53
[2019-03-05] MEDS ORDERED: NORVASC 2.5 MG2.5 M1 PO (09:47)
[2019-03-05] MEDS ORDERED: HYDRALAZINE 10M10 MG PO (09:47)
[2019-03-05 12:00] VITALS: BP 165/57
[2019-03-05 12:22] VITALS: BP 146/54
--- NOTE | 2019-03-05 13:34 | NUR ---
RECEIVED REPORT. ASSUMED CARE OF PT AROUND 729. PT A&O X4. VSS. PAPER CUTTING MACHINE OPERATOR IN PLACE TRACING SR, BORDERLINE 1ST DEGREE. AM ASSESSMENT AND VITALS COMPLETED CHARTED. PT DENIES PAIN OR DISCOMFOR. PT TOLERATIND DIET. UP WITH ASSIST TO BATHROOM. AT BEDSIDE. DISCHARGE ORDERS RECEIVED. DISCHARGE COMPLETED DOCUMENTED. DISCHARGE SUMMARY AND CARE NOTES GONE OVER WITH PT AND , BOTH COMMUNICATE UNDERSTANDING. PT TOLD THAT SCRIPTS WERE SENT TO HER PHARMAY. PT AWARE TO CALL RENAL DOCTOR TO SCHEDULE A SOONER APPOINTMENT AND TO HAVE A BMP DONE ONE WEEK POST DC. IV AND PAPER CUTTING MACHINE OPERATOR REMOVED ALL BELONGINGS PACKED AND LEFT WITH PT. PT LEFT UNIT IN WC WITH NURSING STAFF. PT LEFT HOSPITAL IN CAR WITH .
== END 2019-03-05 13:27 | disposition home or self-care (01) | DRG 305 ==
LOC: M.ERS 21:42 → M.TBA-ER 22:45 → M.2W 22:45
PROVIDERS: Internal Medicine; Personal Emergency Response Attendant; ADMIT Internal Medicine
DX: I16.1 Hypertensive emergency (principal); N18.5 Chronic kidney disease, stage 5; N17.9 Acute kidney failure, unspecified; N25.81 Secondary hyperparathyroidism of renal origin; I50.30 Unspecified diastolic (congestive) heart failure; I13.2 Hypertensive heart and chronic kidney disease with heart failure and with stage 5 chronic kidney disease, or end stage renal disease; K58.9 Irritable bowel syndrome, unspecified; K21.9 Gastro-esophageal reflux disease without esophagitis; G20 Parkinson's disease; D63.8 Anemia in other chronic diseases classified elsewhere; E11.22 Type 2 diabetes mellitus with diabetic chronic kidney disease; Z91.19 Patient's noncompliance with other medical treatment and regimen; Z90.49 Acquired absence of other specified parts of digestive tract; Z90.710 Acquired absence of both cervix and uterus; Z86.010 Personal history of colon polyps; Z88.6 Allergy status to analgesic agent; Z88.8 Allergy status to other drugs, medicaments and biological substances; Z79.899 Other long term (current) drug therapy

== ENCOUNTER 2019-08-05 15:15 | Inpatient (IN) | payer MEDICARE ==
[~2019-08-05] VITALS: Ht 162.6 cm; Wt 67.4 kg
[~2019-08-05 15:15] MED LIST changes: +CALCIUM ACETAT667 MG PO; +CARBIDOPA-LEVO1 EA10 PO; +CARBIDOPA-LEVO1 EAC7 PO; +CATAPRES0.1 MG PO; +NORVASC 2.5 MG2.5 M1 PO
[2019-08-05 15:16] VITALS: BP 186/75
[2019-08-05] MEDS ORDERED: SIMVASTATIN80 MG PO (15:27)
[2019-08-05] MEDS ORDERED: SENNA S TABLET1 EACH PO (15:27)
[2019-08-05] MEDS ORDERED: TORSEMIDE10 MG PO (15:28)
[2019-08-05] MEDS ORDERED: LACTULOSE20 GM/30 M PO (15:28)
[2019-08-05 16:19] LABS: ABSOLUTE BASOPHILS 0.1 thou/uL (0.0-0.2); ABSOLUTE EOSINOPHILS 0.2 thou/uL (0.0-0.7); ABSOLUTE LYMPHOCYTES 0.8 thou/uL (0.8-5.3); ABSOLUTE MONOCYTES 0.6 thou/uL (0.0-1.2); ABSOLUTE NEUTROPHILS 6.4 thou/uL (1.6-8.1); BASOPHILS 1.1 %; HEMATOCRIT 33.6 % (37.0-47.0); HEMOGLOBIN 11.4 gm/dL (12.0-15.0); LYMPHOCYTES 10.2 %; MCH 33.4 pg (26.0-34.0); MCHC 34.1 g/dL (28.0-37.0); MCV 97.8 fL (80.0-100.0); MONOCYTES 7.3 %; MPV 8.5 fl. (7.2-11.1); NUCLEATED RBCS 0 /100WBC; PLATELET COUNT* 190 thou/uL (150-400); POLYS 79.4 %; RBC 3.43 mil/uL (4.20-5.00); WBC 8.1 thou/uL (4.0-11.0)
[2019-08-05 16:30] LABS: CREATININE 1.6 mg/dL (0.6-1.3); POTASSIUM 3.3 mmol/L (3.5-5.1)
[2019-08-05 16:44] LABS: ALBUMIN 3.5 g/dL (3.4-5.0); TOTAL BILIRUBIN 0.3 mg/dL (<0.1-1.0); TOTAL PROTEIN 7.7 g/dL (6.4-8.2)
--- NOTE | 2019-08-05 17:01 | NUR ---
PT'S SPOUSE IS CONCERNED ABOUT WHERE TO SENIOR ONLINE MARKETING MANAGER THE PATIENT ONCE SHE IS DISCHARGED FROM THE HOSPITAL.
[2019-08-05] MEDS ORDERED: CARBIDOPA-LEVO1 EAC7 PO (17:20)
[2019-08-05 18:10] VITALS: BP 155/51
[2019-08-05 18:13] VITALS: BP 172/59
--- NOTE | 2019-08-05 18:54 | NUR ---
PT ADMITTED TO ROOM 213 VIA WHEELCHAIR BY NURSING STAFF AT APPROX 1805. PT IS A&OX4, SATTING 98% ON RA, TRACING SR ON THE BRIDGE IRONWORKER HELPER AND HAS NO C/O PAIN OR SHORTNESS OF BREATH. PT HAS A RAMAKRISHNA FISTULA, ADMISSION ASSESSMENT AND HX COMPLETED CHARTED, SEPSIS SCREENING NEG, HOME MEDS RECONCILED AND RESTARTED, HOME MEDS W/ PT SENT TO PHARMACY. PT ORIENTED TO ROOM AND CALL LIGHT, NEPHRO AND CARDIOLOGY CONSULTS IN PLACE, WILL CONTINUE POC.
[2019-08-05 20:09] VITALS: BP 173/59
[2019-08-05 23:38] VITALS: BP 180/69
[2019-08-06 01:04] VITALS: BP 116/49
[2019-08-06 04:21] VITALS: BP 135/43
--- NOTE | 2019-08-06 07:40 | NUR ---
PT IS ABLE TO COMMUNICATE HER NEEDS TO STAFF EFFECTIVELY. SHE HAS DENIED THE NEED FOR PAIN MEDICATION UP TO THIS TIME. SHE IS CURRENTLY FOLLOWING A M/W/F SCHEDULE FOR HEMODIALYSIS; LEFT ARM FISTULA IS PATENT, GOOD T&B.
[2019-08-06 07:53] VITALS: BP 128/38
--- NOTE | 2019-08-06 10:46 | NUR ---
ASSUMED PT CARE AT 0730, PT RESTING IN BED, A&OX4, SATTING 92% RA, TRACING SR ON THE TEXTILE MACHINERY SALES REPRESENTATIVE AND C/O BEING LIGHTHEADED WHEN WE GOT HER UP TO GO TO THE COMODE WHICH SUBSIDED SHE SAT BACK DOWN. PT WAS SEEN BY CARDIOLOGY AND NEPHRO THIS MORNING. XIMENA FISTULA HAS A PRESSURE BANDAGE ON IT, THRILL AND BRUIT NOTED W/ NO APPARENT DRAINAGE. PT GOAL IS TO REMAIN FREE FROM CHEST PAIN AND FIGURE OUT PLAN REGARDING LOW K+ (3.3). AM ASSESSMENT CHARTED, MEDS PER MAR, HOURLY ROUNDING OBSERVED, WILL CONTINUE POC.
[2019-08-06 13:57] VITALS: BP 135/54
[2019-08-06 16:00] VITALS: BP 187/62
--- NOTE | 2019-08-06 18:39 | NUR ---
NO ACUTE CHANGES THROUGHOUT SHIFT. PT HAD NO FURTHER C/O LIGHTHEADEDNESS AND DID HAVE A BM TODAY. NO C/O CHEST PAIN OR SHORTNESS OF BREATH, MEDS GIVEN PER MAR, HOURLY ROUNDING OBSERVED, PT REPOSITIONS SELF, WILL CONTINUE POC.
[2019-08-06 20:49] VITALS: BP 165/58
[2019-08-07] VITALS (7 sets, daily range): BP systolic 102–153; BP diastolic 40–59
--- NOTE | 2019-08-07 07:48 | NUR ---
PT IS ABLE TO COMMUNICATE HER NEEDS TO STAFF EFFECTIVELY. SHE HAS DENIED THE NEED FOR PAIN MEDICATION UP TO THIS TIME. SHE IS TENTATIVELY SCHEDULED TO HAVE A NUC STRESS TEST ON THURSDAY. LEFT UPPER ARM FISTULA HAS GOOD T&B. SHE IS CURRENTLY FOLLOWING A M/W/ HEMODIALYSIS SCHEDULE.
--- NOTE | 2019-08-07 08:31 | CON ---
[address] [address] CONSULTATION Name: CARRIE LOVE Room: [address] IN M.R.#: [id number] Admission: 08/05/19 Attend Phys: Valerie Shrestha Discharge: Date of : 47 Report #: [id number] THIS REPORT FOR: //name// cc: Magdalena Peters Anna S. DO ~ THIS REPORT FOR: //name// CC: Magdalena Deras The patient is a 73-year-old female patient who is on code blue. We have been consulted to see by Dr. Deras for end-stage renal disease and to provide dialysis during the hospital stay. HISTORY OF PRESENT ILLNESS: The patient is 73 years old. She has a history of end-stage renal disease. She is on hemodialysis at the [facility]. She was on dialysis yesterday when she noted some left-sided chest pain around half an hour before dialysis was completed. She was brought into the hospital. She reported substernal pain with may be some radiation towards left, pain may be slightly reproducible. The pain let off for a little bit during the day, but then came back overnight. This morning, she still has some vague pain in her mid chest and the left side of chest. She has no fevers. No chills, no cough, no phlegm. PAST MEDICAL HISTORY: Significant for end-stage renal disease on hemodialysis, appendectomy, hysterectomy, AV fistula, diabetes, hypertension, IBS, GERD. HOME MEDICATIONS: PhosLo, calcitriol, Protonix, carbidopa/levodopa, nortriptyline, carvedilol, simvastatin, lactulose, and torsemide. PERSONAL, SOCIAL AND FAMILY HISTORY: No active smoking or alcohol intake reported. REVIEW OF SYSTEMS: Besides the chest pain, no other focal symptoms. No fevers, rigors, or chills. No abdominal pain or GI symptoms. PHYSICAL EXAMINATION: GENERAL: She appears comfortable. Awake, alert, oriented x 3. VITAL SIGNS: Blood pressure 135/43, pulse 68, temperature 36.8. LUNGS: Diminished, but clear. CARDIOVASCULAR: The left upper pain may appear to be reproducible, but we will await Cardiology recommendations. EXTREMITIES: No significant lower extremity edema. Left upper arm brachiocephalic fistula. LABORATORY DATA: Hemoglobin 11.4. Sodium 139, potassium 3.3, chloride 98, bicarbonate 36, BUN 7, creatinine 1.6, albumin 3.5. CK-MB 1.0. [place] [address] CONSULTATION Name: CARRIE LOVE Room: [address] IN [facility].#: [id number] Admission: 08/05/19 Attend Phys: Valerie Shrestha Discharge: Date of : 47 Report #: [id number] negative x 3. ASSESSMENT: 1. End-stage renal disease. 2. Hypertension. 3. Diabetes. 4. Chest pain, as described above. 5. Irritable bowel syndrome. 6. Left upper arm fistula. PLAN: 1. Dialysis on a Thursday, Thursday, Thursday schedule. If the patient is seen in the hospital on Thursday, we will do her next dialysis in the hospital. 2. Chest pain, being managed. Troponins negative so far. Further management per primary team and Cardiology Services as necessary. 3. Renal diet. 4. Phosphorus binders. Thank you for the consultation. We will continue to follow and provide necessary support during the hospital stay. <ELECTRONICALLY SIGNED> By: Savannah Rutherford MD 08/07/19 0831 [id number] [id number] Rutherford MD /nt
--- NOTE | 2019-08-07 10:57 | NUR ---
ASSUMED PT CARE AT 0730, PT A&OX4, SATTING 96% ON RA, TRACING SR ON THE STORAGE MANAGEMENT CONSULTANT AND HAS NO C/O PAIN OR SHORTNESS OF BREATH BUT STATES SHE IS LIGHTHEADED. COREG HELD R/T LOW BP AND LIGHTHEADEDNESS. PT GOAL IS TO INCREASE ACTIVITY AND MAINTAIN SAFETY. AM ASSESSMENT CHARTED, MEDS GIVEN PER MAR, HOURLY ROUNDING OBSERVED, BED IN LOW POSITION, ENCOURAGED PT TO CALL OUT WHEN NEEDING TO AMBULATE TO RESTROOM, CALL LIGHT W/IN REACH, WILL CONTINUE POC.
--- NOTE | 2019-08-07 16:09 | EKG ---
[place] [address] ELECTROCARDIOGRAM REPORT Name: CARRIE LOVE Room: [address] ADM IN M.R.#: [id number] Admission: 08/05/19 Attend Phys: Deondre Deras Discharge: Date of : 47 Date of Service: 08/05/19 1518 Report #: [id number] THIS REPORT FOR: //name// [facility] ED Test Date: 2019-08-05 Test Time: 15:18:16 Pat Name: CARRIE LOVE Department: Room: [facility] Gender: F Web Content Producer: CHRIS : 1945 Requested By: Titus Martinez Order Number: [id number] MD: Raz White Measurements Intervals [place] Rate: 86 P: 16 PA: 199 QRS: -5 QRSD: 107 T: 62 QT: 411 QTc: 492 Interpretive Statements Sinus rhythm Compared to ECG 03/01/2019 21:48:45 No significant changes Electronically Signed On 08-07-2019 16:07:23 CDT by Raz White [email or web address] <ELECTRONICALLY SIGNED> By: Raz White MD, FACC 08/07/19 1607 1518 1518 Rza White MD, [facility] /EPI
--- NOTE | 2019-08-07 18:48 | NUR ---
NO ACUTE CHANGES THROUGHOUT SHIFT, PT AMBULATED MULTIPLES TIMES TODAY TO THE BATHROOM W/ NO FURTHER C/O LIGHTHEADEDNESS. PT WILL BE NPO AFTER MIDNIGHT TONIGHT FOR A STRESS TEST IN THE AM. MEDS GIVEN PER MAR, HOURLY ROUNDING OBSERVED, WILL CONTINUE POC.
[2019-08-08] VITALS: BP 125/41
[2019-08-08 04:00] VITALS: BP 135/42
[2019-08-08 04:42] LABS: ABSOLUTE BASOPHILS 0.1 thou/uL (0.0-0.2); ABSOLUTE EOSINOPHILS 0.3 thou/uL (0.0-0.7); ABSOLUTE LYMPHOCYTES 1.6 thou/uL (0.8-5.3); ABSOLUTE MONOCYTES 0.6 thou/uL (0.0-1.2); ABSOLUTE NEUTROPHILS 4.2 thou/uL (1.6-8.1); BASOPHILS 1.1 %; HEMATOCRIT 29.2 % (37.0-47.0); HEMOGLOBIN 10.1 gm/dL (12.0-15.0); LYMPHOCYTES 23.6 %; MCH 33.8 pg (26.0-34.0); MCHC 34.4 g/dL (28.0-37.0); MCV 98.2 fL (80.0-100.0); MONOCYTES 8.8 %; MPV 8.1 fl. (7.2-11.1); NUCLEATED RBCS 0 /100WBC; PLATELET COUNT* 200 thou/uL (150-400); POLYS 61.5 %; RBC 2.98 mil/uL (4.20-5.00); RDW-CV 14.1 % (10.5-14.5); WBC 6.9 thou/uL (4.0-11.0)
[2019-08-08 04:57] LABS: CALCIUM 8.3 mg/dL (8.5-10.1); POTASSIUM 3.5 mmol/L (3.5-5.1)
[2019-08-08 05:00] LABS: CREATININE 4.4 mg/dL (0.6-1.3)
--- NOTE | 2019-08-08 05:19 | NUR ---
ASSUMED CARE OF PT AFTER REPORT AT 1930. PT A&OX4. VSS. PHYSICAL ASSESSMENT COMPLETED AND CHARTED. PT ON RA. PT TRACING SR/1ST DEG ON TELE. PT UPSTANDBY TO RESTROOM. REMINDED ON NPO POST MIDNIGHT FOR STRESS TEST TODAY. COMMUNICATES UNDERSTANDING. PT ABLE TO SLEEP WELL ON BED. FALL PRECAUTIONS IN PLACE. CALL LIGHT WITHIN REACH.
[2019-08-08 07:45] VITALS: BP 185/75
--- NOTE | 2019-08-08 14:52 | NUR ---
CM spoke with Pt's via phone. Pt is independent. Uses a cane for mobility. Hx of [facility]. Pt receives HD at [facility] on a MWF schedule, chair time is 11am. Per , Pt has been on HD for about 2 weeks. Possible dc to home today pending stress test, CM updated . Hx of skilled at [facility]. CM to fax referral and flowsheets to dialysis at [facility].
[2019-08-08 16:16] VITALS: BP 192/70
--- NOTE | 2019-08-08 16:48 | NUR ---
PATIENT ALERT AND ORIENTED X 4. VITAL SIGNS STABLE ON ROOM AIR. UP WITH GAIT BELT AND WALKER TO THE BATHROOM. IV PATENT AND SALINE LOCKED. DENIES PAIN AND NAUSEA AT THIS TIME. FALL PRECAUTIONS IN PLACE AND BED ALARM ON. HOURLY ROUNDS MAINTAINED THROUGHOUT THE SHIFT. CALL LIGHT WITHIN REACH. NURSING WILL CONTINUE TO MONITOR.
[2019-08-08 17:12] VITALS: BP 192/70
--- NOTE | 2019-08-08 18:21 | NUR ---
PATIENT DISCHARGED FROM UNIT AT 1812. ALERT AND ORIENTED X 4. VITAL SIGNS STABLE ON ROOM AIR. DISCHARGE INSTRUCTIONS AND MEDICATION INFORMATION GIVEN TO PATIENT. LEFT WITH ALL BELONGINGS. PATIENT LEFT WITH SPOUSE VIA CAR.
[2019-08-08 18:37] VITALS: BP 192/70
--- NOTE | 2019-08-09 07:52 | NUR ---
Pt discharged to home last evening, CM faxed HH orders to [facility] and faxed flowsheets and referral to [facility]
--- NOTE | 2019-08-09 08:28 | CON ---
[facility] [address] [place] [address] CONSULTATION Name: CARRIE LOVE Room: [address] IN M.R.#: [id number] Admission: 08/05/19 Attend Phys: Valerie Shrestha Discharge: 08/08/19 Date of : 47 Report #: [id number] THIS REPORT FOR: //name// cc: Magdalena Peters Anna S. DO ~ THIS REPORT FOR: //name// CC: Magdalena Deras CARDIOLOGY CONSULT INDICATION: Chest pain and hypertension. HISTORY OF PRESENT ILLNESS: The patient is a very pleasant 73-year-old white female with history of hypertension that has been somewhat labile recently. Of note, she did start dialysis approximately a month ago. She also has Parkinson's for which she takes Sinemet 4 times daily and a long-acting formulation once daily. Before she completed dialysis, she had midsternal chest discomfort described as a pressure and heaviness. At this time, she was noted to be fairly hypertensive with systolic blood pressures in the 200s. The patient was transferred to the hospital and admitted for further evaluation. She has ruled out for myocardial infarction by serial enzymes. At the time of my interview, she is comfortable. She notes that she still has a slight twinge of discomfort in the left upper chest, shoulder area, but does not appear to be bothered with this. She denies shortness of breath. She is without other cardiac complaint at this time. Echocardiogram a year ago showed normal LV systolic function and grade 1 diastolic dysfunction. She has aortic valvular sclerosis without stenosis. Stress testing in 2017 showed normal LV function and no evidence of infarct or ischemia. She does not have any history of documented coronary artery disease. PAST MEDICAL HISTORY: 1. End-stage renal disease, on hemodialysis. 2. Hypertension. 3. Parkinson disease. 4. Nonocclusive carotid vascular disease. 5. Hyperlipidemia. 6. Type 2 diabetes mellitus. PAST SURGICAL HISTORY: 1. Appendectomy. 2. Cholecystectomy. 3. [place] [address] CONSULTATION Name: CARRIE LOVE Room: [address]#: [id number] Admission: 08/05/19 Attend Phys: Valerie Shrestha Discharge: 08/08/19 Date of : 47 Report #: [id number] 4. Left arm AV fistula. 5. Colon polyps. FAMILY HISTORY: Noncontributory. SOCIAL HISTORY: The patient is . She is retired. She does not drink alcohol or smoke tobacco. ALLERGIES: MORPHINE. HOME MEDICATIONS: Calcium acetate 667 mg after meals, Sinemet 10/100 one tablet p.o. q.i.d., Sinemet ER 50/200 one tablet daily, carvedilol 6.25 mg b.i.d., gabapentin 100 mg t.i.d., lactulose 20 mg b.i.d. p.r.n., nortriptyline 50 mg at bedtime, Protonix 40 mg daily, senna S tablets, 1 tablet b.i.d., simvastatin 20 mg at bedtime, torsemide 20 mg p.r.n. REVIEW OF SYSTEMS: On 14-point review of systems, she reports chest pain as outlined above, occasional edema of the lower extremities, type 2 diabetes mellitus, irritable bowel syndrome and reflux. ALLERGIES TO MORPHINE. She wears glasses without acute visual loss. Otherwise, 14-point review of systems was unremarkable. PHYSICAL EXAMINATION: VITAL SIGNS: Stable. Blood pressure 128/38, pulse is 68 and regular. GENERAL: This is a pleasant lady who is not in any distress. Mood and affect appropriate. Affect slightly blunted, presumably from Parkinson's. HEENT: Head is normocephalic, atraumatic. Extraocular muscles intact. The patient is wearing glasses. Mucous membranes are moist. NECK: Shows no jugular venous distention. There is a cardiac murmur that radiates to the carotids bilaterally. CHEST: Reveals clear lung goodwin without wheezes or rales. CARDIOVASCULAR: Reveals a regular rhythm with a grade 3/6 systolic ejection murmur consistent with aortic valvular sclerosis versus stenosis. ABDOMEN: Reveals normal bowel sounds. The abdomen is soft, nontender. EXTREMITIES: Shows no edema. SKIN: Dry. LABORATORY DATA: A 12-lead EKG shows sinus rhythm without significant ST or T-wave abnormality. There is some baseline artifact from Parkinson's. IMPRESSION AND RECOMMENDATIONS: 1. Chest pain. The patient has ruled out for myocardial infarction. We will proceed with noninvasive stress testing. She has risk factors including hypertension and dyslipidemia. 2. End-stage renal disease, on dialysis per Nephrology. 3. Hypertension. Blood pressure appears to be somewhat labile, presently [facility] [address] [place] [address] CONSULTATION Name: CARRIE LOVE Room: [address] IN M.R.#: [id number] Admission: 08/05/19 Attend Phys: Valerie Shrestha Discharge: 08/08/19 Date of : 47 Report #: [id number] stable. She had been on a low dose of Norvasc. We will resume low-dose Norvasc and continue carvedilol at current dose. 4. Parkinson's disease. The patient is on Sinemet 4 times daily and an extended release form once daily. Would confer with Nephrology regarding compatibility with dialysis. <ELECTRONICALLY SIGNED> By: Raz White MD, FACC 08/09/19 0828 1107 1132Raz White MD, FACC /nt
--- NOTE | 2019-08-09 11:36 | CARDNUC ---
[place] [address] CARDIAC NUCLEAR IMAGING REPORT Name: CARRIE LOVE Valerie Room: [address] IN [facility]#: [id number] Admission: 08/05/19 Attend Phys: Deondre Deras Discharge: 08/08/19 Date of : 47 Date of Service: 08/09/19 1135 Report #: [id number] THIS REPORT FOR: cc: Magdalena Peters,Magdalena Ramirez,Raz Canela MD [facility] ~ APPROVED REPORT Imaging Protocol: Rest Tc-99m/Stress Tc-99m 1 day Study performed: 08/06/2019 11:01:00 Indication: Chest pain Patient Location: In-Patient Room #: 213 Stress Tech: Charline Pineda Stress Nurse: Maria Dolores Fortune RN NM Tech:JONAS West Ht: 5 ft 4 in Wt: 148 lbs BSA: 1.72 m2 BMI: 25.40 Medical History Medical History: Angina, ESRD- ICHD, Parkinson's, Murmur, HTN, HLD, Diabetes, Weakness, Fatigue. Medications: Carvedilol, Amlodipine, Demadex, Atorvastatin. Allergies: Morphine, Clonidine, Adhesives. Cardiac Risk Factors: Age, DM, FHX of CAD, HTN, Hyperlipidemia, ESRD-ICHD. Previous Cardiac Procedures: None Pretest Chest Pain Characteristics: No chest pain Exercise History: Sedentary Physical Disabilities: Parkinson's, dialysis, weakiness, fatigue. Meds Held (24 hrs): Carvedilol. Resting Data Rest SPECT myocardial perfusion imaging was performed in supine position 30 minutes following the intravenous injection of 12.0 mCi of Tc-99m Sestamibi. Time of rest injection: 1215 Date: 08/08/2019 The images were gated to evaluate regional wall motion and calculate left ventricular ejection fraction. Administration Route: [place] [address] CARDIAC NUCLEAR IMAGING REPORT Name: CARRIE LOVE Room: [address]#: [id number] Admission: 08/05/19 Attend Phys: Deondre Deras Discharge: 08/08/19 Date of : 47 Date of Service: 08/09/19 1135 Report #: [id number] Administration Site: Right Arm Pharmacologic Stress Pharmacologic stress test was performed by injecting Regadenoson 0.4 mg IV push over 10-15 seconds immediately followed by the intravenous injection of 30.2 mCi of Tc-99m Sestamibi. Time of stress injection: 1400 Date: 08/08/2019 Administration Route: IV Administration Site: Right Arm Gated Stress SPECT was performed 40 minutes after stress injection. The images were gated to evaluate regional wall motion and calculate left ventricular ejection fraction. Stress only was performed in the Supine position. Stress Test Details Stress Test: Pharmacologic stress testing performed using 0.4 mg of regadenoson per 5 mL given IV over 10 seconds. Reason for pharmacologic stress test: Parkinson's, s/p dialysis, weakness, fatigue.. 60 mg caffeine given for dyspnea, dizziness, headache, Nausea, chest pressure.. HR Max Heart Rate (APMHR): 148 bpm Resting HR: 78 bpm Target HR (85% APMHR): 125 bpm Max HR Achieved: 91 bpm % of APMHR: 61 Recovery HR: 86 bpm BP Resting BP: 133/70 mmHg Max BP: 73/37 mmHg Recovery BP: 127/54 mmHg ECG Resting ECG: Sinus Rhythm Stress ECG: Sinus Rhythm ST Change: None Arrhythmia: None Recovery ECG: Sinus Rhythm Recovery ST Change: None Recovery Arrhythmia: None Clinical Reason for Termination: Completed protocol Stress Symptoms: Abdominal discomfort, Chest pressure, Dizziness, Lightheaded, Weakness, Fatigue, Nausea, Headache, Diaphoresis, Rib cage pressure, [place] [address] CARDIAC NUCLEAR IMAGING REPORT Name: CARRIE LOVE Room: [address]#: [id number] Admission: 08/05/19 Attend Phys: Deondre Deras Discharge: 08/08/19 Date of : 47 Date of Service: 08/09/19 1135 Report #: [id number] Exercise duration: 00 min 00 sec Exercise capacity: 1.00 METs The patient tolerated Lexiscan infusion without cardiac symptoms. Nurse Comments A 73 year old female inpatient presented for a sitting Lexiscan r/t chest pain during a recent dialysis session. Test tolerated. Recovery unremarkable with 60 mg IV caffeine, effective. Patient was escorted via wheelchair by staff to Nuclear Medicine for imaging. Patient was stable and stated she felt better at that time. Stress ECG Conclusion The baseline 12-lead EKG shows sinus rhythm without ST segment or T-wave abnormality. EKGs obtained during and post Lexiscan infusion showed sinus rhythm with no significant ST segment or T wave changes when compared to baseline. There were no stress-induced arrhythmias. Study Quality Study: Good Artifact: No artifact Study Data At rest, the left ventricular ejection fraction was 76%.. Post stress, the left ventricular ejection was 68%.. TID = 1.05. Perfusion Perfusion images obtained at rest and post Lexiscan stress showed uniform uptake of the radioisotope throughout the myocardium. There were no defects to suggest infarct or ischemia. Wall Motion Normal left ventricular wall motion. Nuclear Conclusion ECG Findings: negative for ischemia Clinical Findings: negative for ischemia Nuclear Findings: negative for ischemia Exercise Capacity: not assessed Left Ventricular Function: normal Risk Study: low Perfusion images show no defect to suggest infarct or ischemia. Left ventricular systolic function appears normal on the studies. This is [place] [address] CARDIAC NUCLEAR IMAGING REPORT Name: CARRIE LOVE Room: [address]#: [id number] Admission: 08/05/19 Attend Phys: Deondre Deras Discharge: 08/08/19 Date of : 47 Date of Service: 08/09/19 1135 Report #: [id number] <Conclusion> The baseline 12-lead EKG shows sinus rhythm without ST segment or T-wave abnormality. EKGs obtained during and post Lexiscan infusion showed sinus rhythm with no significant ST segment or T wave changes when compared to baseline. There were no stress-induced arrhythmias. <ELECTRONICALLY SIGNED> By: Raz White MD, FACC 08/09/19 1135 34 34 Raz White MD, FACC /INF
== END 2019-08-08 18:12 | disposition home or self-care (01) | DRG 205 ==
LOC: M.ERS 15:15 → M.TBA-ER 16:54 → M.2W 16:54
PROVIDERS: Family Medicine; Internal Medicine Nephrology; ADMIT Internal Medicine
PROC: 5A1D70Z Performance of Urinary Filtration, Intermittent, Less than 6 Hours Per Day (ICD-10-PCS; principal; 2019-08-08)
DX: M94.0 Chondrocostal junction syndrome [Tietze] (principal); N18.6 End stage renal disease; I12.0 Hypertensive chronic kidney disease with stage 5 chronic kidney disease or end stage renal disease; E11.22 Type 2 diabetes mellitus with diabetic chronic kidney disease; K58.9 Irritable bowel syndrome, unspecified; K21.9 Gastro-esophageal reflux disease without esophagitis; I35.8 Other nonrheumatic aortic valve disorders; I83.90 Asymptomatic varicose veins of unspecified lower extremity; E78.5 Hyperlipidemia, unspecified; G20 Parkinson's disease; Z90.49 Acquired absence of other specified parts of digestive tract; Z99.2 Dependence on renal dialysis; Z90.710 Acquired absence of both cervix and uterus; Z86.010 Personal history of colon polyps; Z79.899 Other long term (current) drug therapy; Z88.8 Allergy status to other drugs, medicaments and biological substances; Z91.09 Other allergy status, other than to drugs and biological substances

== ENCOUNTER 2019-10-05 14:18 | Emergency (ER) | payer MEDICARE ==
[~2019-10-05] VITALS: Ht 162.6 cm; Wt 63.5 kg
[~2019-10-05 14:18] MED LIST changes: +LACTULOSE20 GM/30 M PO; +SENNA S TABLET1 EACH PO; +SIMVASTATIN80 MG PO; +TORSEMIDE10 MG PO
[2019-10-05 15:00] LABS: ABSOLUTE BASOPHILS 0.1 thou/uL (0.0-0.2); ABSOLUTE EOSINOPHILS 0.2 thou/uL (0.0-0.7); ABSOLUTE LYMPHOCYTES 1.1 thou/uL (0.8-5.3); ABSOLUTE MONOCYTES 0.6 thou/uL (0.0-1.2); ABSOLUTE NEUTROPHILS 6.1 thou/uL (1.6-8.1); BASOPHILS 1.1 %; EOSINOPHILS 2.3 %; HEMOGLOBIN 11.6 gm/dL (12.0-15.0); LYMPHOCYTES 13.4 %; MCH 34.2 pg (26.0-34.0); MCV 100.3 fL (80.0-100.0); MONOCYTES 7.8 %; MPV 8.3 fl. (7.2-11.1); NUCLEATED RBCS 0 /100WBC; PLATELET COUNT* 198 thou/uL (150-400); POLYS 75.4 %; RBC 3.39 mil/uL (4.20-5.00); RDW-CV 15.1 % (10.5-14.5); WBC 8.1 thou/uL (4.0-11.0)
[2019-10-05 15:09] LABS: CALCIUM 8.6 mg/dL (8.5-10.1); POTASSIUM 3.4 mmol/L (3.5-5.1)
[2019-10-05 15:12] LABS: APTT 24.6 Seconds (25.0-31.3); PROTIME 10.2 Seconds (9.20-11.50)
[2019-10-05 15:22] LABS: ALBUMIN 3.5 g/dL (3.4-5.0); CK-MB MASS 0.6 ng/mL (<0.5-3.6); TOTAL BILIRUBIN 0.4 mg/dL (<0.1-1.0); TOTAL PROTEIN 7.5 g/dL (6.4-8.2)
[2019-10-05 17:30] VITALS: BP 185/69
--- NOTE | 2019-10-06 09:00 | EKG ---
[place] [address] ELECTROCARDIOGRAM REPORT Name: CARRIE LOVE Room: [facility]#: [id number] Admission: 10/05/19 Attend Phys: Discharge: 10/05/19 Date of : 47 Date of Service: 10/05/19 1426 Report #: [id number] THIS REPORT FOR: //name// [facility] ED Test Date: 2019-10-05 Test Time: 14:26:30 Pat Name: CARRIE LOVE Department: Room: Gender: Puncher: CRHIS : 1945 Requested By: Titus Martinez Order Number: [id number] MD: Raz White Measurements Intervals [place] Rate: 83 P: 17 DC: 199 QRS: 7 QRSD: 107 T: 70 QT: 403 QTc: 474 Interpretive Statements Sinus rhythm Left atrial enlargement Compared to ECG 08/05/2019 15:18:16 Atrial abnormality now present Electronically Signed On 10-06-2019 8:59:58 CDT by Raz White [email or web address] <ELECTRONICALLY SIGNED> By: Raz White MD, [facility] 10/06/19 0859 1426 1426 Raz White MD, [facility] /EPI
== END 2019-10-05 17:33 | disposition home or self-care (01) ==
LOC: M.ERS 14:18
PROVIDERS: Family Medicine
DX: R07.89 Other chest pain (principal); I12.0 Hypertensive chronic kidney disease with stage 5 chronic kidney disease or end stage renal disease; E11.22 Type 2 diabetes mellitus with diabetic chronic kidney disease; K21.9 Gastro-esophageal reflux disease without esophagitis; K58.9 Irritable bowel syndrome, unspecified; N18.6 End stage renal disease; Z99.2 Dependence on renal dialysis; Z90.49 Acquired absence of other specified parts of digestive tract; Z90.710 Acquired absence of both cervix and uterus; Z91.048 Other nonmedicinal substance allergy status; Z88.6 Allergy status to analgesic agent

== ENCOUNTER 2021-01-19 11:44 | Emergency (ER) | payer OTHER ==
[~2021-01-19] VITALS: Ht 157.5 cm; Wt 62.6 kg
[2021-01-19] MEDS ORDERED: HYDROCODON-ACE1 EAC7 PO (12:55)
[2021-01-19 13:17] VITALS: BP 150/55
== END 2021-01-19 13:17 | disposition home or self-care (01) ==
LOC: M.ERS 11:44
DX: S52.501A Unspecified fracture of the lower end of right radius, initial encounter for closed fracture (principal); K21.9 Gastro-esophageal reflux disease without esophagitis; E11.22 Type 2 diabetes mellitus with diabetic chronic kidney disease; I12.9 Hypertensive chronic kidney disease with stage 1 through stage 4 chronic kidney disease, or unspecified chronic kidney disease; N18.9 Chronic kidney disease, unspecified; Z99.2 Dependence on renal dialysis; Z90.89 Acquired absence of other organs; Z90.710 Acquired absence of both cervix and uterus; Z90.49 Acquired absence of other specified parts of digestive tract; Z88.5 Allergy status to narcotic agent; W01.190A Fall on same level from slipping, tripping and stumbling with subsequent striking against furniture, initial encounter; Y93.89 Activity, other specified; Y92.89 Other specified places as the place of occurrence of the external cause; Y99.8 Other external cause status

== ENCOUNTER → 2021-01-24 | Outpatient (CLI) | payer OTHER ==
[~2021-01-24] MED LIST changes: +HYDROCODON-ACE1 EAC7 PO
[2021-01-24 12:38] LABS: CALCIUM 8.7 mg/dL (8.5-10.1); CREATININE 4.4 mg/dL (0.6-1.3); POTASSIUM 3.9 mmol/L (3.5-5.1)
== END ==
LOC: M.LAB 12:15
PROVIDERS: ATTEND Nurse Practitioner Family
DX: N18.6 End stage renal disease (principal)

== ENCOUNTER 2021-02-14 14:52 | Emergency (ER) | payer OTHER ==
[~2021-02-14] VITALS: Ht 157.5 cm; Wt 62.6 kg
[2021-02-14 18:09] VITALS: BP 145/72
== END 2021-02-14 18:09 | disposition home or self-care (01) ==
LOC: M.ERS 14:52
DX: R07.81 Pleurodynia (principal); E11.9 Type 2 diabetes mellitus without complications; I12.9 Hypertensive chronic kidney disease with stage 1 through stage 4 chronic kidney disease, or unspecified chronic kidney disease; E11.22 Type 2 diabetes mellitus with diabetic chronic kidney disease; N18.9 Chronic kidney disease, unspecified; K21.9 Gastro-esophageal reflux disease without esophagitis; Z79.899 Other long term (current) drug therapy; Z90.710 Acquired absence of both cervix and uterus; Z90.49 Acquired absence of other specified parts of digestive tract; Z91.048 Other nonmedicinal substance allergy status; Z88.5 Allergy status to narcotic agent